=== PATIENT | female | born 1965 | race Caucasian/White ===

== ENCOUNTER 2017-01-17 11:53 | Emergency (ER) | payer BC ==
[~2017-01-17 11:53] MED LIST: COREG3.125 MG PO; LANOXIN125 MCG PO; LEVAQUIN750 MG PO; PROZAC40 MG PO; TYLENOL PM EX-1 EACH PO
== END 2017-01-17 13:15 | disposition home or self-care (01) ==
LOC: ER 11:53
DX: S61.211A Laceration without foreign body of left index finger without damage to nail, initial encounter (principal); Z87.891 Personal history of nicotine dependence; Z88.8 Allergy status to other drugs, medicaments and biological substances; Z79.899 Other long term (current) drug therapy; W31.1XXA Contact with metalworking machines, initial encounter